=== PATIENT | male | born 1990 | race Caucasian/White ===

== ENCOUNTER → 2021-10-11 | Outpatient (CLI) | payer SELFPAY ==
[~2021-10-11] MED LIST: Percocet 5-3251 EACH PO
== END | disposition home or self-care (01) ==
LOC: LAB SHORT 14:40
DX: L08.9 Local infection of the skin and subcutaneous tissue, unspecified (principal); L72.8 Other follicular cysts of the skin and subcutaneous tissue
CPT/HCPCS: 87070; 87205